=== PATIENT | male | born 1955 | race Caucasian/White ===

== ENCOUNTER 2019-12-14 10:07 | Inpatient (IN) | payer BC, MEDICAID ==
[~2019-12-14] VITALS: Ht 172.7 cm; Wt 98.1 kg
[2019-12-14] MEDS ORDERED: SODIUM CHLORIDE 0.9% 1,000 ML IVB ONE (10:55)
[2019-12-14 11:24] LABS: Basophils # (auto) 0 10 ^3/uL (0-0.2); Basophils % (auto) 0.5 % (0.0-2.0); Eosinophils # (auto) 0.3 10 ^3/uL (0-0.8); Eosinophils % (auto) 3.7 % (0.0-7.0); Hemoglobin 16.5 g/dL (13.5-17.5); Lymphocytes # (auto) 1.5 10 ^3/uL (0.4-5.4); Lymphocytes % (auto) 17.2 % (10.0-50.0); Mean Corpuscular Hemoglobin 30.7 pg (28.0-32.0); Mean Corpuscular Hgb Conc. 33.1 g/dL (32.0-36.0); Mean Corpuscular Volume 92.8 fL (80.0-100.0); Monocytes # (auto) 0.6 10 ^3/uL (0-1.3); Monocytes % (auto) 7.3 % (0.0-12.0); Neutrophils # (auto) 6.3 10 ^3/uL (1.6-8.6); Neutrophils % (auto) 71.3 % (37.0-80.0); Platelet Count (auto) 190 10^3/uL (140-450); Red Blood Cells 5.39 10^6/uL (4.5-5.90); Red Cell Distribution Width 14.4 % (11.8-14.3); White Blood Cell 8.8 10^3/uL (4.4-10.8)
[2019-12-14 11:42] LABS: Acetaminophen < 2.0 ug/mL (10-30); Albumin 3.4 g/dL (3.4-5.0); Anion Gap 7 (5-15); Blood Urea Nitrogen 28 mg/dL (7-18); Calcium 8.4 mg/dL (8.5-10.1); Carbon Dioxide 25 mmol/L (21-32); Chloride 110 mmol/L (98-107); Glucose 125 mg/dL (74-106); Magnesium 2.1 mg/dL (1.6-2.6); Potassium 3.9 mmol/L (3.5-5.1); Salicylate 1.8 mg/dL (2.8-20.0); Sodium 142 mmol/L (136-145)
[2019-12-14 11:47] LABS: Alanine Aminotransferase 35 U/L (16-61); Alkaline Phosphatase 92 U/L (45-117); Aspartate Aminotransferase 20 U/L (15-37); BUN/Creatinine Ratio 16.9; Bilirubin, Total 0.5 mg/dL (0.2-1.0); GFR African American 54 mL/min; GFR Non-African American 45 mL/min; Total Protein 6.6 g/dL (6.4-8.2)
[2019-12-14 11:48] LABS: Blood Alcohol < 3.0 mg/dL (0-5)
[2019-12-14] MEDS ORDERED: SODIUM CHLORIDE 0.9% 1,000 ML IV ONE ×2 (12:15→13:00)
[2019-12-14] MEDS ORDERED: LORazepam 2MG/ML-1ML VIAL ONE (13:41)
[2019-12-14] MEDS ORDERED: LORazepam 2MG/ML-1ML VIAL IV ONE ×2 (13:45→19:00)
[2019-12-14 14:28] LABS: Urine Bacteria FEW /hpf (None Seen); Urine Blood Negative /uL (Negative); Urine Hyaline Cast MOD /lpf (0 - 2); Urine Mucus FEW (None Seen); Urine Specific Gravity 1.019 (1.001-1.035); Urine WBC 1 /hpf (0 - 3)
[2019-12-14 14:45] LABS: Amphetamine Screen, Urine NEGATIVE (NEGATIVE); Barbiturate Scree,Urine NEGATIVE (NEGATIVE); Benzodiazephine Screen, Urine POSITIVE (NEGATIVE); Cannabinoid Screen, Urine NEGATIVE (NEGATIVE); Cocaine Screen, Urine NEGATIVE (NEGATIVE); Opiate Scree,Urine POSITIVE (NEGATIVE); Phencyclidine Screen, Urine NEGATIVE (NEGATIVE)
[2019-12-14] MEDS ORDERED: NOREPINEPHRINE 8 MG/250ML KIT 250 ML IV SCH (14:46)
[2019-12-14 14:52] LABS: Alcohol, Urine < 3.0 mg/dL (0-10)
[2019-12-14] MEDS ORDERED: NITROGLYCERIN 0.4 MG SL TAB SL PRN (16:00)
[2019-12-14] MEDS ORDERED: MORPHINE SULF INJ 2 MG/ML SYRINGE 1ML IV PRN (16:00)
[2019-12-14] MEDS ORDERED: ACETAMINOPHEN 325 MG TAB PO PRN (16:00)
[2019-12-14] MEDS: SODIUM CHLORIDE 0.9% 1,000 ML IV SCH ×2 (18:33→23:38)
[2019-12-14] MEDS: LORazepam 2MG/ML-1ML VIAL IV PRN (23:16)
[2019-12-15] MEDS ORDERED: LORazepam 2MG/ML-1ML VIAL IV ONE (02:45)
[2019-12-15 07:01] LABS: Basophils # (auto) 0.1 10 ^3/uL (0-0.2); Basophils % (auto) 0.7 % (0.0-2.0); Eosinophils # (auto) 0.1 10 ^3/uL (0-0.8); Eosinophils % (auto) 1.8 % (0.0-7.0); Hematocrit 48.2 % (41.0-53.0); Hemoglobin 16.2 g/dL (13.5-17.5); Lymphocytes # (auto) 1.5 10 ^3/uL (0.4-5.4); Lymphocytes % (auto) 20.4 % (10.0-50.0); Mean Corpuscular Hemoglobin 30.8 pg (28.0-32.0); Mean Corpuscular Hgb Conc. 33.6 g/dL (32.0-36.0); Mean Corpuscular Volume 91.8 fL (80.0-100.0); Monocytes # (auto) 0.5 10 ^3/uL (0-1.3); Monocytes % (auto) 6.1 % (0.0-12.0); Neutrophils # (auto) 5.4 10 ^3/uL (1.6-8.6); Platelet Count (auto) 169 10^3/uL (140-450); Red Blood Cells 5.25 10^6/uL (4.5-5.90); Red Cell Distribution Width 14.3 % (11.8-14.3); White Blood Cell 7.6 10^3/uL (4.4-10.8)
[2019-12-15] MEDS ORDERED: HALOPERIDOL LACTATE 5 MG/ML INJ VIAL IM PRN (07:15)
[2019-12-15] MEDS ORDERED: HALOPERIDOL LACTATE 5 MG/ML INJ VIAL IM ONE (07:15)
[2019-12-15] MEDS ORDERED: diphenhdrAMINE HCL 50 MG/1 ML VL IM ONE (07:30)
[2019-12-15 07:36] LABS: Calcium 8.5 mg/dL (8.5-10.1); Potassium 3.9 mmol/L (3.5-5.1)
[2019-12-15 07:38] LABS: BUN/Creatinine Ratio 19.7
[2019-12-15] MEDS: SODIUM CHLORIDE 0.9% 1,000 ML IV SCH ×3 (07:40→21:00)
[2019-12-15] MEDS: ENOXAPARIN SOD 40 MG/0.4 ML SYRINGE SC SCH (10:00)
[2019-12-15] MEDS: PANTOPRAZOLE 40 MG/10 ML VIAL INJ IV SCH (10:15)
[2019-12-15] MEDS: LORazepam 2MG/ML-1ML VIAL IV PRN (10:41)
[2019-12-15] MEDS ORDERED: diphenhdrAMINE HCL 50 MG/1 ML VL IV ONE (20:15)
[2019-12-15] MEDS ORDERED: diphenhdrAMINE HCL 50 MG/1 ML VL ONE (20:36)
[2019-12-15] MEDS ORDERED: LORazepam 2MG/ML-1ML VIAL ONE (22:55)
[2019-12-15] MEDS ORDERED: LORazepam 2MG/ML-1ML VIAL IV STA (23:10)
[2019-12-15] MEDS: ONDANSETRON HCL 4 MG/2 ML VIAL IV PRN (23:12)
[2019-12-15] MEDS ORDERED: ONDANSETRON HCL 4 MG/2 ML VIAL ONE (23:12)
[2019-12-15] MEDS ORDERED: HALOPERIDOL LACTATE 5 MG/ML INJ VIAL ONE (23:20)
[2019-12-15] MEDS: HALOPERIDOL LACTATE 5 MG/ML INJ VIAL IM PRN (23:20)
[2019-12-16] MEDS: HALOPERIDOL LACTATE 5 MG/ML INJ VIAL IM PRN ×2 (03:33→08:30)
[2019-12-16] MEDS ORDERED: LORazepam 2MG/ML-1ML VIAL IM ONE (04:00)
[2019-12-16] MEDS ORDERED: LORazepam 2MG/ML-1ML VIAL IV ONE (04:30)
[2019-12-16] MEDS: SODIUM CHLORIDE 0.9% 1,000 ML IV SCH (08:00)
[2019-12-16] MEDS: ENOXAPARIN SOD 40 MG/0.4 ML SYRINGE SC SCH (10:00)
[2019-12-16] MEDS ORDERED: HYDROmorphone HCL 2 MG/ML VL IV ONE (10:15)
[2019-12-16] MEDS: PANTOPRAZOLE 40 MG/10 ML VIAL INJ IV SCH (10:21)
[2019-12-16] MEDS: LORazepam 2MG/ML-1ML VIAL IV PRN ×2 (10:31→10:34)
[2019-12-16] MEDS: ONDANSETRON HCL 4 MG/2 ML VIAL IV PRN (10:32)
--- NOTE | 2019-12-16 11:36 | NUR ---
Telemetry admit from [facility] admitted to Telemetry unit after SBAR received. Patient oriented to JASWANT vaughn RN, unit, room, bed, and unit policies regarding patient care and visiting hours. Patient now on continuous telemetry monitoring, tele box 80 and telemetry reading on arrival to unit is NSR 94. Patient placed on bedside oxygen, weighed by bed scale and encouraged to call if they need something. There is a sitter at bedside, patient is confused and agitated, patient is on four point soft restraints, no skin breakdown or circulatory issues noted. Patient has a Delgado placed, hematuria noted, it is draining to gravity, no kinks or tubes noted. Patient is incontinent to stool, there is an order for rectal tube, patient is refusing. Patient was encouraged to call for assistance as needed.
[2019-12-16] MEDS ORDERED: TRAZ1TAB12 PO (11:54)
[2019-12-16] MEDS ORDERED: BACL20TA PO (11:54)
[2019-12-16] MEDS ORDERED: LISI-285 PO (11:54)
[2019-12-16] MEDS ORDERED: SIMV-13 PO (11:57)
[2019-12-16] MEDS ORDERED: LOP2C PO (11:57)
[2019-12-16] MEDS ORDERED: MORP1TAB14 PO (11:57)
[2019-12-16] MEDS ORDERED: PRIM50TA5 PO (11:57)
[2019-12-16] MEDS ORDERED: HYDR-531 PO (11:57)
[2019-12-16] MEDS ORDERED: GABA300C10 PO (11:57)
--- NOTE | 2019-12-16 12:13 | NUR ---
RESTRAINTS Patient is on four point soft restraints to the bilateral upper and lower extremities. Patient is agitated and trying to pull at IV and Delgado. No skin breakdown or circulatory issues noted.
--- NOTE | 2019-12-16 12:25 | NUR ---
CALL FROM PATIENT After verification of password she was updated on the plan of care. Per "My tries to AMA all of the time, he does not look well, I saw him this morning. He just called me from the room, I do not want him to use the phone or be able to sign out AMA."
--- NOTE | 2019-12-16 14:57 | NUR ---
WOUNDS NOTED Skin tear on scrotum and nonblanching redness on scrotum. Pictures taken and wound consult placed. Patient had a bowel movement, changed, Z-guard applied.
--- NOTE | 2019-12-16 15:50 | NUR ---
Restraints Patient right lower leg restraint removed, patient tolerated well. Soft restraint still in place on left lower extremity and bilateral upper extremities. No skin breakdown or circulatory issues noted.
--- NOTE | 2019-12-16 16:00 | NUR ---
SARAVANAN AT BEDSIDE Updated on patient status, plan of care was discussed with the patient and he verbalized understanding. Per MD patient soft restraints can come off. New orders received for swallow eval, d/c iv fluids if patient passes swallow eval, and pt order. Orders reac back and verified.
--- NOTE | 2019-12-16 16:05 | NUR ---
RESTRAINTS REMOVED Per MD order. Patient tolerated well. Patient was instructed not to pull on lines, and he verbalized understanding. Sitter is at bedside.
[2019-12-16 17:00] VITALS: BP 130/77
--- NOTE | 2019-12-16 18:00 | NUR ---
PATIENT COMPLAINING OF BEING HUNGRY stating "if i dont get food I am going to leave". Patient was educated that he needs a swallow evaluation, consult is already placed, and that it has to be done before we andrew give him food. He verbalized understanding but stated that he would leave in one hour if he did not get to eat. He was educated again that he cannot leave because he is not stable. He verbalized understanding.
--- NOTE | 2019-12-16 18:10 | NUR ---
CALL FROM FAMILY Patient's daughter Lorena called, after password verification she was updated on the plan of care and verbalized understanding. All questions answered.
--- NOTE | 2019-12-16 19:10 | NUR ---
OPENING SHIFT NOTES RESUMED CARE OF PT ,PT IS AWAKE AND ALERT NO SIGNS AND SYMPTOMS OF DISTRESS OR SOB NOTED. BED IS IN THE LOWEST LOCKED POSITION, SIDE RAILS UP X 2. CALL LIGHT WITH IN REACH.UPDATED PT ON PLAN OF CARE AND PT VERBALIZED UNDERSTANDING WILL CONTINUE TO MONITOR Q1HR AN PRN
[2019-12-16 21:01] VITALS: BP 152/91
--- NOTE | 2019-12-16 21:30 | NUR ---
Dr. Ashraf at bedside and tried feeding patient with Jello to assess for swallowing. Patient able to consumed Jello within minutes without choking. Patient was given [place] sandwich as well and swallows well.
[2019-12-16] MEDS: MORPHINE SULF 30 mg ER tab PO SCH (22:33)
--- NOTE | 2019-12-17 00:25 | NUR ---
PSYCHIATRIC CONSULT DONE
[2019-12-17] MEDS ORDERED: traZODone HCL 50 MG TAB PO ONE (00:30)
[2019-12-17 05:34] VITALS: BP 132/74
--- NOTE | 2019-12-17 07:30 | NUR ---
Opening Shift Note Assumed care of patient, awake and alertX4. No S/S of distress/SOB or pain. Bed in lowest and locked position with side rails up x2 and call light in reach. Instructed on POC and to call for assist PRN, will continue to monitor for changes Q1hr and PRN.
[2019-12-17 08:25] VITALS: BP 142/86
[2019-12-17] MEDS: MORPHINE SULF 30 mg ER tab PO SCH (10:00)
[2019-12-17] MEDS: ENOXAPARIN SOD 40 MG/0.4 ML SYRINGE SC SCH (10:00)
[2019-12-17] MEDS: PANTOPRAZOLE 40 MG/10 ML VIAL INJ IV SCH (10:00)
--- NOTE | 2019-12-17 10:10 | NUR ---
WOUND CARE NOTE: Wound care in to see patient per wound care request regarding skin integrity issue that are noted present on admission. Bedside nurse took photograph of patient's skin issue upon admission for reference. Patient is 64 years old male with admitting diagnosis of Hypotension, Encephalopathy. Patient is resting in bed in Rm. 280B. He's awake,alert and oriented. Patient is self turning and repositioning. Nurse aide at bedside reported that patient is ambulatory to bathroom. His Higinio score is 14. Noted patient's scrotum, buttocks has multi rash like erythema consistent with moisture associated skin damage. On reports, patient came in with confusion and has been in bed with episode of incontinence. Staff initiated skin protection measures with BID/PRN cleaning and application of Z Guard cream to sacral,buttocks and perineum. Patient tolerated well, no other wound noted. Nurse case assistant at bedside. RECOMMENDATION: Nursing to continue with Daily/PRN cleaning of sacral, buttocks perineum with Z Guard cream application per MD order, keep clean and dry, redistribute pressure points with pillows,continue monitoring by wound care while patient is hospitalized. Addendum: 12/17/19 at 1318 by Roxie Dumont RN Amended: Links added.
--- NOTE | 2019-12-17 10:36 | NUR ---
SWALLOW EVALUATED. PATIENT HAS DENTURES, UPPER AND LOWER. PATIENT ALERT AND ABLE TO FOLLOW MULTI-STEP COMMANDS. PATIENT TOLERATED TRIAL OF REGULAR TEXTURE WITH THIN LIQUIDS WITH NO OVERT SIGNS OR SYMPTOMS OF ASPIRATION. NURSING NOTIFIED.
--- NOTE | 2019-12-17 11:00 | NUR ---
He catheter dc'd Order to discontinue he catheter. He dc'd with clean technique following deflation of balloon. Patient tolerated well with no complaints of pain. Continue care.
--- NOTE | 2019-12-17 12:50 | NUR ---
PATIENT REFUSED TO WAIT FOR HOME HEALTH TO BE SET UP AND REFUSED TO WAIT FOR THE DISCHARGE PAPERWORK. RN EDUCATED PATIENT ON THE IMPORTANCE OF THE PAPER WORK AND HOME HEALTH AND THE RISKS AND BENEFITS. PATIENT VERBALIZED UNDERSTANDING.
--- NOTE | 2019-12-17 13:00 | NUR ---
Discharge instructions given as ordered. Encourage to follow up with PMD as instructed. All questions and concerns addressed. Patient verbalized understanding. No Home medications held in Pharmacy. Pt refused vaccines. IV removed with catheter intact, pressure dressing applied, he catheter removed. Telemetry unit returned to ICU. Patient taken to vehicle via wheelchair with all personal belongings, accompanied by staff and family member. No distress noted at time of departure.
--- NOTE | 2019-12-17 14:46 | NUR ---
Patient discharge prior to assessment Per SS consult for home health safety evaluation. [facility] is not contracted with patient health plan. redirected order to [facility]. Per [place] with [facility] patient has been accepted and service to start within 24-48hrs upon d/c day. Faxed clinical information to [facility] medical group requesting authorization for [facility].
[2019-12-17] MEDS ORDERED: traZODone HCL 50 MG TAB PO SCH (22:00)
== END 2019-12-17 13:00 | disposition home health service (06) | DRG 100 ==
LOC: EDSEX 10:07 → ER 10:07 → EDBD 10:07 → TELE 10:08 → TELE-WESTW 12-16 11:36
PROVIDERS: ADMIT Internal Medicine; ATTEND Internal Medicine
DX: G40.409 Other generalized epilepsy and epileptic syndromes, not intractable, without status epilepticus (principal); N17.0 Acute kidney failure with tubular necrosis; G92 Toxic encephalopathy; F11.20 Opioid dependence, uncomplicated; G89.29 Other chronic pain; M54.9 Dorsalgia, unspecified; J44.9 Chronic obstructive pulmonary disease, unspecified; Z96.612 Presence of left artificial shoulder joint; I95.9 Hypotension, unspecified; I10 Essential (primary) hypertension; F32.9 Major depressive disorder, single episode, unspecified; R32 Unspecified urinary incontinence; Z90.49 Acquired absence of other specified parts of digestive tract; Z83.3 Family history of diabetes mellitus; Z82.49 Family history of ischemic heart disease and other diseases of the circulatory system; Z81.8 Family history of other mental and behavioral disorders
CPT/HCPCS: 36415; 70450; 70551; 71045; 80048; 80053; 80307; 80320; 80329; 81001; 82962; 83735; 84484; 85025; 87493; 92610; 93005; 99291; C9113; G0378; J2405